=== PATIENT | female | born 1990 | race Caucasian/White ===

== ENCOUNTER 2022-10-06 14:36 | Observation (INO) | payer BC, SELFPAY ==
--- NOTE | ~2022-10-06 | US_ITS ---
EXAMINATION: US OB <= 14 weeks fetus DATE: 10/06/2022 15:48 INDICATION: Viability for hyperemesis. Assess heart rate. TECHNIQUE: Real-time pelvic ultrasound utilizing both a transvaginal and transabdominal probe was pe rformed. The interpreting radiologist was not present for the study. COMPARISON: None. FINDINGS: The uterus measures 11.5 x 9.0 x 4.8 cm. There is an intrauterine gestational sac. A yolk sac and fe levi pole are identified. The crown rump length measures 5.7 cm, which correlates with an estimated ge stational age of 12 weeks and 2 days. heart motion is identified measuring 167 beats per minute (bpm) by M-mode Doppler. The right and left ovaries are not visualized. There is no free fluid in the pelvis. IMPRESSION: 1. Single living fetus with heart rate of 167 bpm. 2. Gestational age by ultrasound of 12 weeks 2 day(s) +/- 1 week and 1 day with ultrasound estimated date of delivery (NUHA) of 04/18/2023. Reviewed, dictated and finalized at location A. IMPRESSION: 1. Single living fetus with heart rate of 167 bpm. 2. Gestational age by ultrasound of 12 weeks 2 day(s) +/- 1 week and 1 day wit h ultrasound estimated date of delivery (NUHA) of 04/18/2023.
--- NOTE | 2022-10-06 15:29 | OBADM ---
This patient, Yin Hardy, admitted to the OB room [facility] for observation. Patient/family oriented to hospital policies and general routines including ID bracelet, bed and alarms, visiting hours, pain management, procedures, bathroom and other care routines, personal items, smoking policy, room service/diet, and visiting hours. Patient/Family are encouraged to report perceived risks to care and to ask questions if they do not understand what they are told or what they should do.
[2022-10-06 15:46] VITALS: BMI 28.3
[2022-10-06] MEDS: DEXTROSE 5%/LACTATED RINGERS 1,000 ML 999 ML IV CONT (15:48)
[2022-10-06] MEDS: ONDANSETRON INJ 4 MG/2 ML VIAL IV PUSH (15:53)
[2022-10-06 16:14] VITALS: BP 129/76; PULSE 75
[2022-10-06 16:18] LABS: Appearance Urine Clear (Clear); Bacteria Urine None Seen /hpf; Bilirubin Urine Negative (Negative); Blood Urine Negative (Negative); Color Urine Yellow (Yellow); Glucose Urine UA Negative (Negative); Ketones Urine 3+ mg/dL (Negative); Leukocyte Esterase Ur 2+ LEU/UL (NEGATIVE); Nitrate Urine Negative (Negative); Non Pathogenic Casts 0-2; Protein Urine Negative (Negative); RBC Urine 0-2 /hpf (0-2); Specific Grav Ur 1.007 (1.001-1.035); Squamous Epithelial Cell Urine Occasional /hpf (Few); Urobilinogen Urine 0.2 mg/dL (<2.0)
[2022-10-06 16:26] LABS: Basophils Percent Auto 0.3 % (0.2-1.2); Eosinophils Absolute Auto 0.1 K/mm3 (0-0.3); Eosinophils Percent Auto 0.4 % (0-4.4); Hemoglobin 12.8 g/dL (12.0-15.0); Immature Granulocyte Absolute 0.04 K/mm3 (0.00-0.031); Immature Granulocyte Percent A 0.3 % (0-0.5); Lymphocytes Absolute Auto 2.07 K/mm3 (0.9-3.2); Lymphocytes Percent Auto 17.8 % (18.3-44.2); Mean Corpuscular HGB Conc 34.6 g/dl (32-36); Mean Corpuscular Hemoglobin 31.1 pg (26-34); Mean Corpuscular Volume 89.8 fl (80-100); Mean Platelet Volume 9.8 fl (7.4-10.4); Monocytes Absolute Auto 0.6 K/mm3 (0.1-0.6); Monocytes Percent Auto 5.1 % (2.6-8.5); Neutrophils Absolute Auto 8.9 K/mm3 (1.3-6.7); Neutrophils Percent Auto 76.1 % (45.5-73.1); Platelet Count Result 216 k/mm3 (150-375); Red Blood Count 4.12 M/mm3 (4.2-5.4); Red Cell Distribution Width 12.9 % (11.5-14.5); White Blood Count 11.6 K/mm3 (4.5-10.0)
[2022-10-06 16:34] LABS: Add Urine Microscopic? YES
[2022-10-06] MEDS: DEXTROSE 5%/LACTATED RINGERS 1,000 ML 200 ML IV CONT (16:41)
[2022-10-06 17:45] LABS: HIV 1/2 Ab P24 Ag Result Negative (Negative)
[2022-10-06 19:01] VITALS: BP 123/69; PULSE 75; PULSE 77; TEMP 36.3; O2SAT 100
[2022-10-06 19:29] LABS: Vitamin D 25 Hydroxy 31.8 ng/mL
[2022-10-06 19:39] LABS: Hemoglobin A1C 4.9 % (<5.7)
[2022-10-06 19:57] LABS: Hepatitis C Virus Antibody Negative (Negative)
[2022-10-06 20:02] LABS: Hepatitis B Surface Antigen Negative (Negative)
[2022-10-06 21:42] LABS: Appearance Urine Clear (Clear); Bacteria Urine None Seen /hpf; Bilirubin Urine Negative (Negative); Blood Urine Negative (Negative); Color Urine Yellow (Yellow); Glucose Urine UA Negative (Negative); Ketones Urine Negative (Negative); Leukocyte Esterase Ur 1+ LEU/UL (Negative); Nitrate Urine Negative (Negative); Non Pathogenic Casts 0-2; Protein Urine Negative (Negative); RBC Urine 0-2 /hpf (0-2); Specific Grav Ur 1.002 (1.001-1.035); Squamous Epithelial Cell Urine None seen /hpf (Few); Urobilinogen Urine 0.2 mg/dL (<2.0); pH Urine 7.5 (5.0-9.0)
[2022-10-06 22:09] LABS: Add Urine Microscopic? YES
[2022-10-09 11:48] LABS: Rapid Plasma Reagin Non-Reactive (NonReactive)
--- NOTE | 2022-10-11 11:26 | PM.OBTRLD ---
OB - Triage/Final Diagnosis Visit Information Reason for evaluation: threatened labor Comments/Additional reasons for admission: I have assessed the risk for this patient, Yin Hardy, and determined that she would benefit from observation care. Evaluation Laboratory results: Laboratory Tests 10/06/22 10/06/22 10/06/22 15:10 16:01 21:26 WBC 11.6 H RBC 4.12 L Hgb 12.8 Hct 37.0 MCV 89.8 MCH 31.1 MCHC 34.6 RDW 12.9 Plt Count 216 MPV 9.8 Immature Gran % (Auto) 0.3 Neut % (Auto) 76.1 H Lymph % (Auto) 17.8 L Cotton % (Auto) 5.1 Eos % (Auto) 0.4 Baso % (Auto) 0.3 Lymph # (Auto) 2.07 Cotton # (Auto) 0.6 Eos # (Auto) 0.1 Baso # (Auto) 0.0 Abs Immat Gran (auto) 0.04 H Absolute Neuts (auto) 8.9 H Absolute Nucleated RBC 0.0 Nucleated RBC % 0.0 Hemoglobin A1c 4.9 Ferritin 71.20 Vitamin D 25-Hydroxy 31.8 Urine Color Yellow Yellow Urine Appearance Clear Clear Urine pH 6.0 7.5 Ur Specific [place] 1.007 1.002 Urine Protein Negative Negative Urine Glucose (UA) Negative Negative Urine Ketones 3+ H Negative Ur Blood (Man) Negative Negative Urine Nitrate Negative Negative Urine Bilirubin Negative Negative Urine Urobilinogen 0.2 0.2 Ur Leukocyte Esterase 2+ H Leukocyte Esterase Rfl 1+ H Urine RBC 0-2 0-2 Urine WBC 11-20 H 6-10 H Ur Squamous Epith Cells Occasional None seen Urine Bacteria None seen None seen Urine Casts 0-2 0-2 RPR Non-reactive Hep Bs Antigen Negative Hepatitis C Ab Screen Negative HIV 1&2 Ab/P24 Ag 4thGn Negative Rubella IgG Antibody 14.0 Blood Type A Positive Antibody Screen Negative
== END 2022-10-06 22:34 | disposition home or self-care (01) ==
PROVIDERS: Admitting Provider Obstetrics & Gynecology Gynecology; Visit Provider Obstetrics & Gynecology
DX: O47.00 False labor before 37 completed weeks of gestation, unspecified trimester (principal); O21.0 Mild hyperemesis gravidarum; Z11.4 Encounter for screening for human immunodeficiency virus [HIV]; Z3A.12 12 weeks gestation of pregnancy
CPT/HCPCS: 36415; 76801; 81001; 82306; 82728; 83036; 85025; 86592; 86703; 86762; 86803; 86850; 86900; 86901; 87086; 87340; 96361; 96374; G0378; G0379; G0432; J2405; J7121